=== PATIENT | male | born 1955 | race Caucasian/White ===

== ENCOUNTER 2021-12-26 10:39 | Inpatient (IN) | payer BC, OTHER ==
[2021-12-26 12:09] LABS: BASO % 0.6 % (0-2.0); EOS % 2.7 % (0-4.5); HEMOGLOBIN 14.3 GM/dL (11.7-16.9); LYMPH % 11.1 % (8-40); MCH 32.6 pg (25.7-33.7); MCHC 33.1 g/dl (32.0-35.9); MEAN CELL VOLUME 98.3 fl (80-96); MEAN PLT VOLUME 8.9 fl (7.5-11.1); MONO % 13.2 % (3.8-10.2); NEUT % 72.4 % (42.8-82.8); PLATELET COUNT 175 10^3/uL (134-434); RBC 4.38 M/mm3 (4.00-5.60); RDW 14.3 % (11.9-15.9); WHITE BLOOD COUNT 6.8 K/mm3 (4.0-10.0)
[2021-12-26 12:13] LABS: INR 1.27 (0.83-1.09); PROTHROMBIN TIME (PATIENT) 14.6 SEC (9.7-13.0)
[2021-12-26 12:16] LABS: ACTIVATED PTT 29.1 SECONDS (25.2-36.5)
[2021-12-26 12:28] LABS: CALCIUM 9.3 mg/dL (8.5-10.1)
[2021-12-26 12:29] LABS: ALBUMIN 3.6 g/dl (3.4-5.0); BLOOD UREA NITROGEN 40.4 mg/dL (7-18); MAGNESIUM 2.2 mg/dL (1.8-2.4)
[2021-12-26 12:32] LABS: CREATININE 1.5 mg/dL (0.55-1.3)
[2021-12-26 12:33] LABS: BILIRUBIN,TOTAL 1.2 mg/dL (0.2-1); TOT PROT 6.1 g/dl (6.4-8.2)
[2021-12-26] MEDS ORDERED: FUROSEMIDE 40 MG/4 ML INJECTABLE VIAL IVPUSH ONE (12:36)
[2021-12-26 12:37] LABS: N-TERMINAL BNP 9700.6 pg/ml (5-125)
[2021-12-26] MEDS ORDERED: FUROSEMIDE 40 MG/4 ML INJECTABLE VIAL ONE (13:00)
[2021-12-26] MEDS ORDERED: ACETAMINOPHEN 500 MG TABLET (FP) PO ONE (13:06)
[2021-12-26] MEDS ORDERED: LIDOCAINE 5% TOPICAL PATCH TP ONE (13:06)
[2021-12-26] MEDS ORDERED: LIDOCAINE 5% TOPICAL PATCH ONE (13:07)
[2021-12-26] MEDS ORDERED: ACETAMINOPHEN 325 MG TABLET (FP) ONE ×2 (13:07→21:41)
[2021-12-26] MEDS ORDERED: LORazepam 1 MG TABLET ONE (21:41)
[2021-12-26] MEDS: LORazepam 1 MG TABLET PO PRN (21:47)
[2021-12-26] MEDS: ACETAMINOPHEN 325 MG TABLET (FP) PO PRN (21:47)
[2021-12-26] MEDS ORDERED: metoPROLOL SUCCINATE 25 MG TAB.SR.24H (FP) ONE (23:19)
[2021-12-26] MEDS ORDERED: ATORVASTATIN CA 40 MG TABLET (FP) ONE (23:19)
[2021-12-26] MEDS: metoPROLOL SUCCINATE 25 MG TAB.SR.24H (FP) PO SCH (23:31)
[2021-12-26] MEDS: ATORVASTATIN CA 40 MG TABLET (FP) PO SCH (23:31)
[2021-12-27] MEDS ORDERED: LIDOCAINE PATCH REMOVAL MC SCH (01:00)
[2021-12-27 02:28] VITALS: BMI 35.2
[2021-12-27] MEDS: LORazepam 1 MG TABLET PO PRN (06:45)
[2021-12-27] MEDS: ACETAMINOPHEN 325 MG TABLET (FP) PO PRN ×2 (06:47→19:02)
[2021-12-27 07:50] LABS: HEMATOCRIT 40.9 % (35.4-49); HEMOGLOBIN 13.9 GM/dL (11.7-16.9); MCH 33.2 pg (25.7-33.7); MCHC 33.9 g/dl (32.0-35.9); MEAN CELL VOLUME 97.8 fl (80-96); MEAN PLT VOLUME 8.9 fl (7.5-11.1); PLATELET COUNT 152 10^3/uL (134-434); RBC 4.18 M/mm3 (4.00-5.60); RDW 13.7 % (11.9-15.9); WHITE BLOOD COUNT 6.1 K/mm3 (4.0-10.0)
[2021-12-27 08:11] LABS: CALCIUM 8.7 mg/dL (8.5-10.1)
[2021-12-27 08:12] LABS: ALBUMIN 3.1 g/dl (3.4-5.0); BLOOD UREA NITROGEN 41.4 mg/dL (7-18)
[2021-12-27 08:14] LABS: CREATININE 1.5 mg/dL (0.55-1.3)
[2021-12-27 08:16] LABS: BILIRUBIN,TOTAL 1.3 mg/dL (0.2-1); TOT PROT 5.4 g/dl (6.4-8.2)
[2021-12-27 08:19] LABS: IRON SERUM 46 ug/dL (50-175)
[2021-12-27 08:21] LABS: TOTAL IRON BINDING CAPACITY 310 ug/dL (250-450)
[2021-12-27] MEDS: metoPROLOL SUCCINATE 25 MG TAB.SR.24H (FP) PO SCH ×2 (10:27→21:35)
[2021-12-27] MEDS: FOLIC ACID 1 MG TABLET (FP) PO SCH (10:32)
[2021-12-27] MEDS: DIGOXIN 0.125 MG TABLET PO SCH (10:32)
[2021-12-27] MEDS: THIAMINE HCL 100 MG TABLET (FP) PO SCH (10:32)
[2021-12-27] MEDS: ASPIRIN COATED 81 MG TABLET.EC PO SCH (10:32)
[2021-12-27] MEDS: LOSARTAN POTASSIUM 50 MG TABLET PO SCH (10:34)
[2021-12-27] MEDS: FUROSEMIDE 40 MG/4 ML INJECTABLE VIAL IVPUSH SCH (10:47)
[2021-12-27] MEDS ORDERED: POTASSIUM CHLORIDE TABS 10 MEQ TABLET.ER (FP) PO ONE ×2 (12:50→15:15)
[2021-12-27] MEDS ORDERED: IRON SUCROSE INJECTION 300 MG in SODIUM CHLORIDE 235 ML IVPB ONE (17:30)
[2021-12-27] MEDS: ATORVASTATIN CA 40 MG TABLET (FP) PO SCH (21:30)
[2021-12-27] MEDS: RANOLAZINE E.R. 500 MG TABLET (FP) PO SCH (21:34)
[2021-12-27] MEDS: HEPARIN NA (PORCINE) 5,000 UNITS/ML 1ML VIAL SQ SCH (21:34)
[2021-12-28 07:42] LABS: HEMATOCRIT 44.5 % (35.4-49); HEMOGLOBIN 14.9 GM/dL (11.7-16.9); MCH 32.9 pg (25.7-33.7); MCHC 33.4 g/dl (32.0-35.9); MEAN CELL VOLUME 98.5 fl (80-96); MEAN PLT VOLUME 9.6 fl (7.5-11.1); PLATELET COUNT 146 10^3/uL (134-434); RBC 4.52 M/mm3 (4.00-5.60); RDW 14.7 % (11.9-15.9); WHITE BLOOD COUNT 6.5 K/mm3 (4.0-10.0)
[2021-12-28 07:59] LABS: ALBUMIN 3.4 g/dl (3.4-5.0); BLOOD UREA NITROGEN 46.2 mg/dL (7-18)
[2021-12-28 08:00] LABS: CALCIUM 8.9 mg/dL (8.5-10.1)
[2021-12-28 08:02] LABS: CREATININE 1.4 mg/dL (0.55-1.3)
[2021-12-28 08:03] LABS: TOT PROT 5.6 g/dl (6.4-8.2)
[2021-12-28 08:04] LABS: BILIRUBIN,TOTAL 1.6 mg/dL (0.2-1)
[2021-12-28] MEDS: ASPIRIN COATED 81 MG TABLET.EC PO SCH (10:44)
[2021-12-28] MEDS: LOSARTAN POTASSIUM 50 MG TABLET PO SCH (10:44)
[2021-12-28] MEDS: FOLIC ACID 1 MG TABLET (FP) PO SCH (10:44)
[2021-12-28] MEDS: DIGOXIN 0.125 MG TABLET PO SCH (10:45)
[2021-12-28] MEDS: RANOLAZINE E.R. 500 MG TABLET (FP) PO SCH ×2 (10:45→21:32)
[2021-12-28] MEDS: HEPARIN NA (PORCINE) 5,000 UNITS/ML 1ML VIAL SQ SCH ×2 (10:46→21:31)
[2021-12-28] MEDS: FUROSEMIDE 40 MG/4 ML INJECTABLE VIAL IVPUSH SCH ×2 (10:46→14:11)
[2021-12-28] MEDS: THIAMINE HCL 100 MG TABLET (FP) PO SCH (10:46)
[2021-12-28] MEDS: metoPROLOL SUCCINATE 25 MG TAB.SR.24H (FP) PO SCH ×2 (13:07→21:32)
[2021-12-28] MEDS: KETOROLAC TROMETHAMINE 30 MG/1 ML VIAL IVPB PRN (17:36)
[2021-12-28] MEDS: methylPREDNISolone NA SUCC 40 MG/1 ML VIAL IVPB SCH ×2 (17:40→23:29)
[2021-12-28] MEDS: LIDOCAINE 5% TOPICAL PATCH TP SCH (20:15)
[2021-12-28] MEDS: LIDOCAINE PATCH REMOVAL MC SCH (21:31)
[2021-12-28] MEDS: ATORVASTATIN CA 40 MG TABLET (FP) PO SCH (21:37)
[2021-12-29] MEDS: FUROSEMIDE 40 MG/4 ML INJECTABLE VIAL IVPUSH SCH ×2 (05:47→13:34)
[2021-12-29] MEDS: methylPREDNISolone NA SUCC 40 MG/1 ML VIAL IVPB SCH ×3 (07:28→23:29)
[2021-12-29 08:25] LABS: BLOOD UREA NITROGEN 48.2 mg/dL (7-18); CALCIUM 9.1 mg/dL (8.5-10.1)
[2021-12-29 08:26] LABS: ALBUMIN 3.1 g/dl (3.4-5.0)
[2021-12-29 08:29] LABS: CREATININE 1.6 mg/dL (0.55-1.3)
[2021-12-29 08:30] LABS: BILIRUBIN,TOTAL 1.7 mg/dL (0.2-1)
[2021-12-29] MEDS: THIAMINE HCL 100 MG TABLET (FP) PO SCH (10:49)
[2021-12-29] MEDS: LOSARTAN POTASSIUM 50 MG TABLET PO SCH (10:50)
[2021-12-29] MEDS: metoPROLOL SUCCINATE 25 MG TAB.SR.24H (FP) PO SCH ×2 (10:52→21:23)
[2021-12-29] MEDS: ASPIRIN COATED 81 MG TABLET.EC PO SCH (10:52)
[2021-12-29] MEDS: FOLIC ACID 1 MG TABLET (FP) PO SCH (10:52)
[2021-12-29] MEDS: DIGOXIN 0.125 MG TABLET PO SCH (10:52)
[2021-12-29] MEDS: RANOLAZINE E.R. 500 MG TABLET (FP) PO SCH ×2 (10:53→21:23)
[2021-12-29] MEDS: TIOTROPIUM BROMIDE 2.5 MCG (SPIRIVA) RESPIMAT INHALER IH SCH (10:54)
[2021-12-29] MEDS: BUDESONIDE/FORMETEROL FUMARATE 160/4.5 mcg INHALER IH SCH ×2 (10:54→21:28)
[2021-12-29] MEDS: HEPARIN NA (PORCINE) 5,000 UNITS/ML 1ML VIAL SQ SCH ×2 (10:57→21:23)
[2021-12-29] MEDS: LIDOCAINE 5% TOPICAL PATCH TP SCH (10:58)
[2021-12-29] MEDS: KETOROLAC TROMETHAMINE 30 MG/1 ML VIAL IVPB PRN (13:34)
[2021-12-29] MEDS: LIDOCAINE PATCH REMOVAL MC SCH (21:23)
[2021-12-29] MEDS: ATORVASTATIN CA 40 MG TABLET (FP) PO SCH (21:23)
[2021-12-29] MEDS: LORazepam 1 MG TABLET PO PRN (23:32)
[2021-12-30] MEDS: FUROSEMIDE 40 MG/4 ML INJECTABLE VIAL IVPUSH SCH ×2 (06:36→14:01)
[2021-12-30] MEDS: THIAMINE HCL 100 MG TABLET (FP) PO SCH (10:39)
[2021-12-30] MEDS: DIGOXIN 0.125 MG TABLET PO SCH (10:39)
[2021-12-30] MEDS: FOLIC ACID 1 MG TABLET (FP) PO SCH (10:39)
[2021-12-30] MEDS: ASPIRIN COATED 81 MG TABLET.EC PO SCH (10:39)
[2021-12-30] MEDS: metoPROLOL SUCCINATE 25 MG TAB.SR.24H (FP) PO SCH ×2 (10:39→21:31)
[2021-12-30] MEDS: LIDOCAINE 5% TOPICAL PATCH TP SCH (10:39)
[2021-12-30] MEDS: predniSONE 20 MG TABLET (UD) PO SCH ×2 (10:39→21:32)
[2021-12-30] MEDS: RANOLAZINE E.R. 500 MG TABLET (FP) PO SCH ×2 (10:39→21:31)
[2021-12-30] MEDS: HEPARIN NA (PORCINE) 5,000 UNITS/ML 1ML VIAL SQ SCH ×2 (10:40→21:31)
[2021-12-30] MEDS: BUDESONIDE/FORMETEROL FUMARATE 160/4.5 mcg INHALER IH SCH ×2 (10:49→21:33)
[2021-12-30] MEDS: TIOTROPIUM BROMIDE 2.5 MCG (SPIRIVA) RESPIMAT INHALER IH SCH (10:49)
[2021-12-30] MEDS: LOSARTAN POTASSIUM 50 MG TABLET PO SCH (10:50)
[2021-12-30] MEDS: SACUBITRIL/VALSARTAN 24 MG-26 MG TABLET PO SCH (21:31)
[2021-12-30] MEDS: ATORVASTATIN CA 40 MG TABLET (FP) PO SCH (21:32)
[2021-12-30] MEDS: LIDOCAINE PATCH REMOVAL MC SCH (21:32)
[2021-12-30 21:53] LABS: PH,URINE 5.5 (5.0-8.0); URINE APPEARANCE CLEAR; URINE BILIRUBIN NEGATIVE (NEGATIVE); URINE COLOR YELLOW; URINE GLUCOSE (UA) NEGATIVE (NEGATIVE); URINE KETONE NEGATIVE (NEGATIVE); URINE LEUK ESTERASE NEGATIVE (NEGATIVE); URINE NITRITE NEGATIVE (NEGATIVE); URINE PROTEIN NEGATIVE (NEGATIVE); URINE UROBILINOGEN 0.2 mg/dL (0.2-1.0)
[2021-12-31] MEDS: FUROSEMIDE 40 MG/4 ML INJECTABLE VIAL IVPUSH SCH (06:56)
[2021-12-31] MEDS: LIDOCAINE 5% TOPICAL PATCH TP SCH (09:56)
[2021-12-31] MEDS: THIAMINE HCL 100 MG TABLET (FP) PO SCH (09:56)
[2021-12-31] MEDS: FOLIC ACID 1 MG TABLET (FP) PO SCH (09:57)
[2021-12-31] MEDS: RANOLAZINE E.R. 500 MG TABLET (FP) PO SCH (09:57)
[2021-12-31] MEDS: ASPIRIN COATED 81 MG TABLET.EC PO SCH (09:57)
[2021-12-31] MEDS: metoPROLOL SUCCINATE 25 MG TAB.SR.24H (FP) PO SCH (09:57)
[2021-12-31] MEDS: predniSONE 20 MG TABLET (UD) PO SCH (09:57)
[2021-12-31] MEDS: HEPARIN NA (PORCINE) 5,000 UNITS/ML 1ML VIAL SQ SCH (09:58)
[2021-12-31] MEDS: DIGOXIN 0.125 MG TABLET PO SCH (09:58)
[2021-12-31] MEDS: TIOTROPIUM BROMIDE 2.5 MCG (SPIRIVA) RESPIMAT INHALER IH SCH (09:59)
[2021-12-31] MEDS: SACUBITRIL/VALSARTAN 24 MG-26 MG TABLET PO SCH (09:59)
[2021-12-31] MEDS: BUDESONIDE/FORMETEROL FUMARATE 160/4.5 mcg INHALER IH SCH (09:59)
[2021-12-31] MEDS ORDERED: FUROSEMIDE 40 MG TABLET (FP) PO SCH (14:00)
[2021-12-31 14:35] VITALS: BP 102/62; PULSE 81; TEMP 98.5
[2021-12-31 16:06] LABS: CALCIUM 8.9 mg/dL (8.5-10.1)
[2021-12-31 16:07] LABS: BLOOD UREA NITROGEN 44.7 mg/dL (7-18)
[2021-12-31 16:10] LABS: CREATININE 1.4 mg/dL (0.55-1.3)
== END 2021-12-31 18:38 | disposition home or self-care (01) | DRG 291 ==
LOC: JER 10:39 → JERBED 15:01 → J4W 12-27 02:08
PROVIDERS: ADMIT Family Medicine; ATTEND Family Medicine
DX: I13.0 Hypertensive heart and chronic kidney disease with heart failure and stage 1 through stage 4 chronic kidney disease, or unspecified chronic kidney disease (principal); I50.23 Acute on chronic systolic (congestive) heart failure; J44.1 Chronic obstructive pulmonary disease with (acute) exacerbation; N17.9 Acute kidney failure, unspecified; I42.8 Other cardiomyopathies; F17.210 Nicotine dependence, cigarettes, uncomplicated; I44.7 Left bundle-branch block, unspecified; F10.20 Alcohol dependence, uncomplicated; R91.8 Other nonspecific abnormal finding of lung field; F25.9 Schizoaffective disorder, unspecified; N28.1 Cyst of kidney, acquired; N18.9 Chronic kidney disease, unspecified
CPT/HCPCS: 36415; 71045-TC-FY; 71250-TC; 76775-TC; 80048; 80053; 80061; 81003; 82570; 83036; 83540; 83550; 83735; 83880; 84156; 84443; 85025; 85027; 85610; 85730; 93005; 93010; 93306-TC; 94761; 99285-25; C9803-CS; J1644; J1756; U0003; U0005